=== PATIENT | male | born 1930 | race Caucasian/White ===

== ENCOUNTER 2017-12-26 14:17 | Inpatient (IN) | payer OTHER, MEDICARE ==
--- NOTE | 2017-12-26 14:36 | PDOC ---
Rapid Medical Evaluation Time Seen by Provider: 12/26/17 14:32 Medical Evaluation: Allergies Allergy/AdvReac Type Severity Reaction Status Date / Time No Known Allergies Allergy Verified 12/26/17 14:28 Vital Signs Temp Pulse Resp BP Pulse Ox 97.8 F 95 H 18 115/95 96 12/26/17 14:28 12/26/17 14:28 12/26/17 14:28 12/26/17 14:28 12/26/17 14:28 12/26/17 14:34 I have performed a brief in-person evaluation of this patient. The patient presents with a chief complaint of altered mental status this am. As per son, father appeared altered over the past 2 days with hallucinations. He is presently being treated for a urinary tract infection, taking antibiotics. Patient reports no new pain or discomfort Pertinent physical exam findings NAD lungs clear bilaterally heart s1s2 abd: non tender, no suprapubic tenderness neuro: grossly intact I have ordered the following: labs ordered The patient will proceed to the ED for further evaluation. Discharge Disposition - Referrals Referrals: Melvin Terrazas MD [Primary Care Provider] - - Patient Instructions - Post Discharge Activity
[2017-12-26 15:25] LABS: BASO % 0.5 % (0-2.0); EOS % 0.8 % (0-4.5); HEMATOCRIT 30.6 % (35.4-49); HEMOGLOBIN 10.3 GM/dL (11.7-16.9); LYMPH % 14.1 % (8-40); MCH 34.1 pg (25.7-33.7); MCHC 33.5 g/dl (32.0-35.9); MEAN CELL VOLUME 101.9 fl (80-96); MEAN PLT VOLUME 9.7 fl (7.5-11.1); MONO % 6.3 % (3.8-10.2); NEUT % 78.3 % (42.8-82.8); PLATELET COUNT 91 K/MM3 (134-434); RDW 13.5 % (11.9-15.9); WHITE BLOOD COUNT 3.9 K/mm3 (4.0-10.0)
--- NOTE | 2017-12-26 15:25 | PDOC ---
History of Present Illness - General Chief Complaint: Altered Mental Status Stated Complaint: ALTERED MENTAL STATUS (PCP SENT) Time Seen by Provider: 12/26/17 14:32 - History of Present Illness Initial Comments: 12/26/17 15:58 Mr. Randall is an 87 yo male w/ pmh of DM, HTN, HLD, umbilical hernia, chronic joint pain, GERD, gastritis, hypothyroidism, and anemia who presents on advice from PCP after 10 days of hallucinations at night and new onset difficulty holding his urine. Per sons who are accompanying him he has never had similar problems before but has been experiencing visual hallucinations every night seeing people who aren't there. Mr. Randall cannot recall any new medications and sons report he will sometimes take extra or none of his medications. The patient denies chest pain, shortness of breath, headache and dizziness. Denies fever, chills, nausea, vomit, diarrhea and constipation. Denies dysuria and hematuria. Allergies: NKDA Past History - Past Medical History Allergies/Adverse Reactions: Allergies Allergy/AdvReac Type Severity Reaction Status Date / Time No Known Allergies Allergy Verified 12/26/17 14:28 Home Medications: Ambulatory Orders Atorvastatin Ca [Lipitor] 10 mg PO HS 02/11/14 Docusate Sodium [Colace -] 100 mg PO BID PRN 02/11/14 Finasteride [Proscar] 5 mg PO DAILY 02/11/14 Levothyroxine [Synthroid -] 75 mcg PO DAILY 02/11/14 Polyethylene Glycol 3350 [Gavilax] 17 gm PO DAILY 06/10/14 Zolpidem Tartrate [Ambien] 10 mg PO HS 09/15/14 Calcium Carbonate [Gaviscon] 200 mg PO QID 12/19/15 Escitalopram Oxalate [Lexapro -] 10 mg PO DAILY 12/19/15 Folic Acid 1 mg PO DAILY 12/19/15 Furosemide [Lasix -] 20 mg PO DAILY 12/19/15 Glipizide [Glucotrol Xl] 5 mg PO DAILY 12/19/15 Lactose-Reduced Food [Boost] 237 ml PO DAILY 12/19/15 Lidocaine 5% Patch [Lidoderm -] 3 patch TP Q72H 12/19/15 Oxycodone HCl 20 mg PO Q4H 12/19/15 Quetiapine Fumarate [Seroquel -] 75 mg PO HS 12/19/15 clonazePAM [KlonoPIN] 0.5 mg PO TID PRN 12/19/15 FENTANYL 75mcg PATCH [DURAGESIC 75mcg PATCH -] 1 each TD Q72H 07/02/16 Nitrofurantoin Monohyd/M-Cryst [Macrobid -] 100 mg PO BID #14 capsule 07/06/16 Anemia: Yes (HX LOW PLATELETS) Asthma: No Cancer: No Cardiac Disorders: Yes (HX "LEAKY VALVE") CVA: No COPD: No CHF: No Dementia: No Diabetes: Yes (NIDDM) GI Disorders: Yes (HX ULCERS,UMBILICAL HERNIA) Disorders: Yes (HX BPH) HTN: Yes Hypercholesterolemia: Yes Liver Disease: No Psychiatric Problems: Yes (DEPRESSION/ ANXIETY) Seizures: No Thyroid Disease: Yes - Surgical History Abdominal Surgery: No Appendectomy: No Cardiac Surgery: No Cholecystectomy: No Lung Surgery: No Neurologic Surgery: No Orthopedic Surgery: Yes (B/L KNEE SX,LEFT THR,B/L CTR) - Immunization History Immunization Up to Date: Yes - Suicide/Smoking/Psychosocial Hx Smoking Status: No Smoking History: Former smoker Have you smoked in the past 12 months: No Number of Cigarettes Smoked Daily: 0 If you are a former smoker, when did you quit?: Over 50 years ago Information on smoking cessation initiated: No Hx Alcohol Use: No Drug/Substance Use Hx: No Substance Use Type: None Hx Substance Use Treatment: No Review of Systems - Review of Systems Comments:: 12/26/17 16:07 GENERAL/CONSTITUTIONAL: +Generalized increasing weakness. No fever or chills. HEAD, EYES, EARS, NOSE AND THROAT: No change in vision. No ear pain or discharge. No sore throat. CARDIOVASCULAR: No chest pain or shortness of breath RESPIRATORY: No cough, wheezing, or hemoptysis. GASTROINTESTINAL: No nausea, vomiting, diarrhea or constipation. GENITOURINARY: +Urinary frequency and incontinence MUSCULOSKELETAL: +Chronic joint pain (unchanged) SKIN: No rash NEUROLOGIC: No headache, vertigo or loss of consciousness ENDOCRINE: No increased thirst. No abnormal weight change HEMATOLOGIC/LYMPHATIC: No anemia, easy bleeding, or history of blood clots. ALLERGIC/IMMUNOLOGIC: No hives or skin allergy. *Physical Exam - Vital Signs Last Vital Signs Temp Pulse Resp BP Pulse Ox 97.8 F 95 H 18 115/95 96 12/26/17 14:28 12/26/17 14:28 12/26/17 14:28 12/26/17 14:28 12/26/17 14:28 - Physical Exam Comments: 12/26/17 16:08 GENERAL: Awake, alert, and fully oriented, in no acute distress HEAD: No signs of trauma, normocephalic, atraumatic EYES: PERRLA, EOMI, sclera anicteric, conjunctiva clear ENT: Auricles normal inspection, hearing grossly normal, nares patent, oropharynx clear without exudates. Moist mucosa NECK: Normal ROM, supple, no lymphadenopathy, JVD, or masses LUNGS: +Diffuse wheezes appreciated. No distress, speaks full sentences, clear to auscultation bilaterally HEART: Regular rate and rhythm, normal S1 and S2, no murmurs, rubs or gallops, peripheral pulses normal and equal bilaterally. ABDOMEN: Soft, nontender, normoactive bowel sounds. No guarding, no rebound. No masses EXTREMITIES: +Lower extremities show significant muscle loss. Normal inspection , Normal range of motion, no edema. No clubbing or cyanosis. NEUROLOGICAL: Cranial nerves II through XII grossly intact. Normal speech, no focal sensorimotor deficits SKIN: Warm, Dry, normal turgor, no rashes or lesions noted. ED Treatment Course - LABORATORY CBC & Chemistry Diagram: 12/26/17 15:00 12/26/17 15:00 Medical Decision Making - Medical Decision Making 12/26/17 19:06 Mr. Randall is an 87 yo male w/ pmh as described who presents for evaluation of new onset weakness, failure to thrive and new onset hallucinations. CBC/CMP/UA/ Urine Culture/Head CT/CXR/EKG sent for evaluation. Labs grossly unconcerning as below. TSH elevated consistent with patient's known hypothyroid status. Inpatient team paged for admission given patient's concerning new ams and weakness. 12/26/17 19:15 Patient admitted to inpatient team for further analysis. Laboratory Results - last 24 hr 12/26/17 12/26/17 12/26/17 14:58 15:00 15:00 WBC 3.9 L RBC 3.00 L Hgb 10.3 L Hct 30.6 L MCV 101.9 H MCH 34.1 H MCHC 33.5 RDW 13.5 Plt Count 91 L MPV 9.7 Neutrophils % 78.3 Lymphocytes % 14.1 Monocytes % 6.3 Eosinophils % 0.8 Basophils % 0.5 PT with INR 13.20 H INR 1.17 H PTT (Actin FS) 27.3 Sodium Potassium Chloride Carbon Dioxide Anion Gap BUN Creatinine Creat Clearance w eGFR Random Glucose Calcium Total Bilirubin AST ALT Alkaline Phosphatase Total Protein Albumin TSH 5.16 H Urine Color Urine Appearance Urine pH Ur Specific [place] Urine Protein Urine Glucose (UA) Urine Ketones Urine Blood Urine Nitrite Urine Bilirubin Urine Urobilinogen Ur Leukocyte Esterase Urine WBC (Auto) Urine RBC (Auto) Ur Epithelial Cells Urine Bacteria 12/26/17 12/26/17 15:00 16:14 WBC RBC Hgb Hct MCV MCH MCHC RDW Plt Count MPV Neutrophils % Lymphocytes % Monocytes % Eosinophils % Basophils % PT with INR INR PTT (Actin FS) Sodium 139 Potassium 4.4 Chloride 102 Carbon Dioxide 27 Anion Gap 10 BUN 20 H D Creatinine 1.0 Creat Clearance w eGFR > 60 Random Glucose 120 H D Calcium 8.4 L Total Bilirubin 0.3 D AST 22 ALT 32 Alkaline Phosphatase 138 H Total Protein 6.3 L Albumin 2.8 L TSH Urine Color Ltyellow Urine Appearance Clear Urine pH 6.0 D Ur Specific [place] 1.009 Urine Protein Negative Urine Glucose (UA) Negative Urine Ketones Negative Urine Blood 1+ H Urine Nitrite Negative Urine Bilirubin Negative Urine Urobilinogen Negative Ur Leukocyte Esterase Negative Urine WBC (Auto) 1 Urine RBC (Auto) 3 Ur Epithelial Cells Rare Urine Bacteria Rare 0 *DC/Admit/Observation/Transfer Diagnosis at time of Disposition: Hallucinations Leg weakness Qualifiers: Laterality: bilateral Qualified Code(s): R29.898 - Other symptoms and signs involving the musculoskeletal system Failure to thrive Qualifiers: Failure to thrive age range: in adult Qualified Code(s): R62.7 - Adult failure to thrive - Discharge Dispostion Admit: Yes - Referrals Referrals: Melvin Terrazas MD [Primary Care Provider] - - Patient Instructions - Post Discharge Activity
[2017-12-26 15:36] LABS: ALBUMIN 2.8 g/dl (3.4-5.0); ANION GAP 10 (8-16); BILIRUBIN,TOTAL 0.3 mg/dL (0.2-1.0); BLOOD UREA NITROGEN 20 mg/dL (7-18); CALCIUM 8.4 mg/dL (8.5-10.1); CHLORIDE 102 mmol/L (98-107); CO2 27 mmol/L (21-32); GLUCOSE,RANDOM 120 mg/dL (74-106); POTASSIUM 4.4 mmol/L (3.5-5.1); SGOT/AST 22 U/L (15-37); SGPT/ALT 32 U/L (12-78); SODIUM 139 mmol/L (136-145); TOT PROT 6.3 g/dl (6.4-8.2)
[2017-12-26 15:37] LABS: ALK PHOS 138 U/L (45-117)
[2017-12-26 15:40] LABS: INR 1.17 (0.82-1.09); PROTHROMBIN TIME (PATIENT) 13.2 SEC (9.98-11.88)
[2017-12-26 15:43] LABS: ACTIVATED PTT 27.3 SECONDS (26.9-34.4)
--- NOTE | 2017-12-26 16:12 | PDOC ---
Attending Attestation - Resident Resident Name: Mustapha Smith - ED Attending Attestation I have performed the following: I have examined & evaluated the patient, The case was reviewed & discussed with the resident, I agree w/resident's findings & plan, Exceptions are as noted - HPI HPI: 12/26/17 16:08 87y M dm, htn, hl, chronic pain, gerd, hypothyroidism sent tot he ED from dr. Terrazas for evaluation of AMS. Per family members, pt has been having hallucinations primarily at night for [facility] 10 days or so, +ua incontinence as well. Pt endorses some generalized weakness. STates it is more difficult for him to get up and ambualte with a walker like he usually does. Pt notes he was started on abx by his PMD, this was approx 5 days ago. Pt denies any headache, dizziness, fever/chills, cp, sob, cough, abd pain, n/v, diarrhe, melena. GENERAL: The patient is awake, alert, a Nontoxic - in no acute distress. HEAD: Normocephalic, atraumatic. EYES: extraocular movements intact, sclera anicteric, conjunctiva clear. ENT: Normal voice, Moist mucous membranes. NECK: Normal range of motion, supple LUNGS: Breath sounds equal, clear to auscultation bilaterally. No wheezes, no rhonchi, no rales. HEART: Regular rate and rhythm, normal S1 and S2 without murmur, rub or gallop. ABDOMEN: Soft, nontender, normoactive bowel sounds. No guarding, no rebound. . No CVA tenderness EXTREMITIES: no edema NEUROLOGICAL: No facial assymetry, Normal speech, thin lower extremities, 3/5 symmetric weakness in the LE. strenth 5/5 in upper extermities, sensation symmetric in upper/lower extermities, no facial assymettry PSYCH: Normal mood, normal affect. SKIN: Warm, Dry, normal turgor, - Physicial Exam PE: 12/26/17 19:36 see above - Medical Decision Making 12/26/17 17:45 ddx - anemia, metabolic derangement, NPH, cva, occult infection will ck ct head, labs, ua, ekg will reassesss pt seems very weak in the LE, may need rehab 12/26/17 19:[address] head shows no signs of hdyrocephalus, no acute changes. but there are some chronic infarcts noted since previous CT will admit pt for further management of AMS/hallucinations and possible PT eval as pt may dali to go to [facility]. Heart Score/ECG Review - ECG Impressions Comment:: 12/26/17 17:46 Twelve-lead EKG was performed and reviewed by me. Accelerated junctional rhythm Rate of 101 occasional PVCs RBBB
[2017-12-26 16:54] LABS: URINE APPEARANCE CLEAR; URINE BILIRUBIN NEGATIVE (NEGATIVE); URINE BLOOD 1+ (NEGATIVE); URINE COLOR LTYELLOW; URINE GLUCOSE (UA) NEGATIVE (NEGATIVE); URINE KETONE NEGATIVE (NEGATIVE); URINE LEUK ESTERASE NEGATIVE (NEGATIVE); URINE NITRITE NEGATIVE (NEGATIVE); URINE PROTEIN NEGATIVE (NEGATIVE); URINE UROBILINOGEN NEGATIVE mg/dL (0.2-1.0)
[2017-12-26 18:16] LABS: EPI CELLS RARE /HPF (FEW); URINE BACTERIA RARE /hpf (NONE SEEN)
--- NOTE | 2017-12-26 19:38 | PN ---
Teaching Attending Note Name of Resident: Jeet Goncalves ATTENDING PHYSICIAN STATEMENT I saw and evaluated the patient. I reviewed the resident's note and discussed the case with the resident. I agree with the resident's findings and plan as documented. SUBJECTIVE: 87 yo M. with pmhx. of HTN, HLD, DM, umbilical hernia, chronic joint pain, GERD , hypothyriodism who presents from PCPs office for evaluation of 10 days of hallucinationsn and weakness. He is seeing people who are not there. States weakness has been porgressivly getting worse, but notes slight improvement after treatment of UTI 5 days ago. Denies any loss of bowel or bladder function. OBJECTIVE: Physical: VS: Vital Signs Period Temp Pulse Resp BP Sys/Scott Pulse Ox Last 24 Hr 97.8 F 95 18 115/95 96 GEN: NAD, Resting in bed, AA0X3 HEENT:NCAT, PERRLA, Throat without erythema or exudates CARD: RRR S1,S2 RESP: CTAB- 2 FENTANYL patches were found on back which patient did NOT know about, states his accidently forgot to take one off. ABD: BSx4, NTD to palpation EXT: - C/C/E, Bilateral LE +1/5 MS, UE +5/5, Sensation intact Rectal- Deferred CBCD WBC 3.9 K/mm3 (4.0-10.0) L 12/26/17 15:00 RBC 3.00 M/mm3 (4.00-5.60) L 12/26/17 15:00 Hgb 10.3 GM/dL (11.7-16.9) L 12/26/17 15:00 Hct 30.6 % (35.4-49) L 12/26/17 15:00 MCV 101.9 fl (80-96) H 12/26/17 15:00 MCHC 33.5 g/dl (32.0-35.9) 12/26/17 15:00 RDW 13.5 % (11.9-15.9) 12/26/17 15:00 Plt Count 91 K/MM3 (134-434) L 12/26/17 15:00 MPV 9.7 fl (7.5-11.1) 12/26/17 15:00 CMP Sodium 139 mmol/L (136-145) 12/26/17 15:00 Potassium 4.4 mmol/L (3.5-5.1) 12/26/17 15:00 Chloride 102 mmol/L (98-107) 12/26/17 15:00 Carbon Dioxide 27 mmol/L (21-32) 12/26/17 15:00 Anion Gap 10 (8-16) 12/26/17 15:00 BUN 20 mg/dL (7-18) H D 12/26/17 15:00 Creatinine 1.0 mg/dL (0.7-1.3) 12/26/17 15:00 Creat Clearance w eGFR > 60 (>60) 12/26/17 15:00 Random Glucose 120 mg/dL (74-106) H D 12/26/17 15:00 Calcium 8.4 mg/dL (8.5-10.1) L 12/26/17 15:00 Total Bilirubin 0.3 mg/dL (0.2-1.0) D 12/26/17 15:00 AST 22 U/L (15-37) 12/26/17 15:00 ALT 32 U/L (12-78) 12/26/17 15:00 Alkaline Phosphatase 138 U/L (45-117) H 12/26/17 15:00 Total Protein 6.3 g/dl (6.4-8.2) L 12/26/17 15:00 Albumin 2.8 g/dl (3.4-5.0) L 12/26/17 15:00 CT HEAD- No acute intercranial hemmorage, mass effect, or hydrocephalus. Ambulatory Orders Atorvastatin Ca [Lipitor] 10 mg PO HS 02/11/14 Docusate Sodium [Colace -] 100 mg PO BID PRN 02/11/14 Finasteride [Proscar] 5 mg PO DAILY 02/11/14 Levothyroxine [Synthroid -] 75 mcg PO DAILY 02/11/14 Polyethylene Glycol 3350 [Gavilax] 17 gm PO DAILY 06/10/14 Zolpidem Tartrate [Ambien] 10 mg PO HS 09/15/14 Calcium Carbonate [Gaviscon] 200 mg PO QID 12/19/15 Escitalopram Oxalate [Lexapro -] 10 mg PO DAILY 12/19/15 Folic Acid 1 mg PO DAILY 12/19/15 Furosemide [Lasix -] 20 mg PO DAILY 12/19/15 Glipizide [Glucotrol Xl] 5 mg PO DAILY 12/19/15 Lactose-Reduced Food [Boost] 237 ml PO DAILY 12/19/15 Lidocaine 5% Patch [Lidoderm -] 3 patch TP Q72H 12/19/15 Oxycodone HCl 20 mg PO Q4H 12/19/15 Quetiapine Fumarate [Seroquel -] 75 mg PO HS 12/19/15 clonazePAM [KlonoPIN] 0.5 mg PO TID PRN 12/19/15 FENTANYL 75mcg PATCH [DURAGESIC 75mcg PATCH -] 1 each TD Q72H 07/02/16 Nitrofurantoin Monohyd/M-Cryst [Macrobid -] 100 mg PO BID #14 capsule 07/06/16 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 with pmhx. of HTN, HLD, DM, umbilical hernia, chronic joint pain, GERD , hypothyriodism who presents from PCPs office for evaluation of 10 days of hallucinations and weakness. 1.) Weakness LE -MRI- Thoracic/ Lumbar if not improving, may be due to medication overuse - PT/OT - Neuro consult - TSH, B12, Folate - CT HEAD- With Chronic Infarcts 2.) CVA Hx - Lipid panel - Lipitor - B12/Folate/TSH - ASA 3.) Hypothyriodism - C/W Synthroid - Chk. Ft4 4.) Dm - FS - RAISS 5.) Hallucinations - D/C Ambien, would avoid Klonapin - Psych. Consult - C/W Seroquel with close monitoring of QtC 6.) Macrocytic Anemia - B12/Folate 7.) Dvt ppx - Heparin 5000 q8
[2017-12-26] MEDS ORDERED: DOCUSATE SODIUM 100 MG CAPSULE (FP) PO PRN (21:42)
[2017-12-26] MEDS ORDERED: oxyCODONE HCL 5 MG TABLET PO ONE (21:45)
[2017-12-26] MEDS ORDERED: OXYCODONE HCL 20 MG PO SCH (21:45)
[2017-12-26] MEDS ORDERED: QUEtiapine FUMARATE 25 MG TABLET (FP) ONE (22:04)
[2017-12-26] MEDS ORDERED: HEPARIN NA (PORCINE) 5,000 UNITS/ML 1ML VIAL ONE (22:04)
[2017-12-26] MEDS ORDERED: oxyCODONE HCL 5 MG TABLET ONE (22:05)
[2017-12-26] MEDS: HEPARIN NA (PORCINE) 5,000 UNITS/ML 1ML VIAL SQ SCH (22:12)
--- NOTE | 2017-12-26 22:20 | HP ---
CHIEF COMPLAINT: weakness PCP: Dr. Melvin Terrazas HISTORY OF PRESENT ILLNESS: The patient is an 87 yo m w/ PMH DM, HTN, BPH, Hypothyroidism, anemia who was sent to the ED by his PCP for a 10 day history of progressive weakness and hallucinations. The patient states that over the past two weeks, he has experienced lethargy, lower extremity weakness and hallucinations. The patient is also complaining of urinary incontinence over the same period of time. He saw he PCP 5 days ago, who prescribed him an antibiotic as an outpatient. After these antibiotics, the patient states that his lethargy and incontinence has improved, but he continues to have LE weakness and nightly visual hallucinations. Patient manages his own medications. Per the patient, he has been taking his medications, but occasionally takes double doses or multiple extra doses of his ambien, kolonopin and seroquel to help him fall asleep. Patient denies auditory hallucinations, suicidal or homicidal ideation, fevers, chills, abdominal pain, nausea or vomiting. The patient's sons are at bedside and confirm the patient's story ER course was notable for: (1) CXR negative (2) UA negative for infection (3) CT head showing only chronic infarcts Recent Travel: none PAST MEDICAL HISTORY: See HPI HLD umbilical hernia chronic joint pain GERD PAST SURGICAL HISTORY: Multiple knee and hip orthopedic surgeries Social History: Smoking: denies Alcohol: denies Drugs: denies Family History: non-contributory Allergies No Known Allergies Allergy (Verified 12/26/17 14:28) HOME MEDICATIONS: Home Medications Medication Instructions Recorded Atorvastatin Ca [Lipitor] 10 mg PO HS 02/11/14 Docusate Sodium [Colace -] 100 mg PO BID PRN 02/11/14 Finasteride [Proscar] 5 mg PO DAILY 02/11/14 Levothyroxine [Synthroid -] 75 mcg PO DAILY 02/11/14 Polyethylene Glycol 3350 [Gavilax] 17 gm PO DAILY 06/10/14 Zolpidem Tartrate [Ambien] 10 mg PO HS 09/15/14 Calcium Carbonate [Gaviscon] 200 mg PO QID 12/19/15 Escitalopram Oxalate [Lexapro -] 10 mg PO DAILY 12/19/15 Folic Acid 1 mg PO DAILY 12/19/15 Furosemide [Lasix -] 20 mg PO DAILY 12/19/15 Glipizide [Glucotrol Xl] 5 mg PO DAILY 12/19/15 Lactose-Reduced Food [Boost] 237 ml PO DAILY 12/19/15 Lidocaine 5% Patch [Lidoderm -] 3 patch TP Q72H 12/19/15 Oxycodone HCl 20 mg PO Q4H 12/19/15 Quetiapine Fumarate [Seroquel -] 75 mg PO HS 12/19/15 clonazePAM [KlonoPIN] 0.5 mg PO TID PRN 12/19/15 FENTANYL 75mcg PATCH [DURAGESIC 1 each TD Q72H 07/02/16 75mcg PATCH -] Nitrofurantoin Monohyd/M-Cryst 100 mg PO BID #14 capsule 07/06/16 [Macrobid -] REVIEW OF SYSTEMS CONSTITUTIONAL: Absent: fever, chills, diaphoresis, malaise, loss of appetite, weight change HEENT: Absent: rhinorrhea, nasal congestion, throat pain, throat swelling, difficulty swallowing, mouth swelling, ear pain, eye pain, visual changes CARDIOVASCULAR: Absent: chest pain, syncope, palpitations, irregular heart rate, lightheadedness , peripheral edema RESPIRATORY: Absent: cough, shortness of breath, dyspnea with exertion, orthopnea, wheezing, stridor, hemoptysis GASTROINTESTINAL: Absent: abdominal pain, abdominal distension, nausea, vomiting, diarrhea, constipation, melena, hematochezia GENITOURINARY: Absent: urgency, hesitancy, hematuria, flank pain, genital pain MUSCULOSKELETAL: Absent: myalgia, neck pain SKIN: Absent: rash, itching, pallor HEMATOLOGIC/IMMUNOLOGIC: Absent: easy bleeding, easy bruising, lymphadenopathy, frequent infections ENDOCRINE: Absent: unexplained weight gain, unexplained weight loss, heat intolerance, cold intolerance NEUROLOGIC: Absent: headache, focal weakness or paresthesias, dizziness, unsteady gait, seizure, mental status changes, bladder or bowel incontinence PSYCHIATRIC: Absent: anxiety, depression, suicidal or homicidal ideation, hallucinations. PHYSICAL EXAMINATION Vital Signs - 24 hr 12/26/17 14:28 Temperature 97.8 F Pulse Rate 95 H Respiratory 18 Rate Blood Pressure 115/95 O2 Sat by Pulse 96 Oximetry (%) GENERAL: Awake, alert, and fully oriented, in no acute distress. HEAD: Normal with no signs of trauma. EYES: Pupils equal, round and reactive to light, extraocular movements intact, sclera anicteric, conjunctiva clear. No lid lag. EARS, NOSE, THROAT: Ears normal, nares patent, oropharynx clear without exudates. Moist mucous membranes. NECK: Normal range of motion, supple without lymphadenopathy, JVD, or masses. LUNGS: Breath sounds equal, clear to auscultation bilaterally. No wheezes, and no crackles. No accessory muscle use. HEART: Regular rate and rhythm, normal S1 and S2 without murmur, rub or gallop. ABDOMEN: Soft, nontender, not distended, normoactive bowel sounds, no guarding, no rebound, no masses. No hepatomegaly or splenomegaly. MUSCULOSKELETAL: upper extremities WNL. Lower extremities with decreased range of motion and tenderness on manipulation. UPPER EXTREMITIES: 2+ pulses, warm, well-perfused. No cyanosis. No clubbing. No peripheral edema. LOWER EXTREMITIES: 2+ pulses, warm, well-perfused. No calf tenderness. No peripheral edema. NEUROLOGICAL: Cranial nerves II-XII intact. Normal speech. 5/5 strength in both upper extremities. 1/5 strength on both lower extremities. Lower extremities are rigid. No cog wheel rigidity on upper extremities. PSYCHIATRIC: Cooperative. Good eye contact. Appropriate mood and affect. SKIN: Warm, dry, normal turgor, no rashes or lesions noted, normal capillary refill. Laboratory Results - last 24 hr 12/26/17 12/26/17 12/26/17 14:58 15:00 15:00 WBC 3.9 L RBC 3.00 L Hgb 10.3 L Hct 30.6 L MCV 101.9 H MCH 34.1 H MCHC 33.5 RDW 13.5 Plt Count 91 L MPV 9.7 Neutrophils % 78.3 Lymphocytes % 14.1 Monocytes % 6.3 Eosinophils % 0.8 Basophils % 0.5 PT with INR 13.20 H INR 1.17 H PTT (Actin FS) 27.3 Sodium Potassium Chloride Carbon Dioxide Anion Gap BUN Creatinine Creat Clearance w eGFR Random Glucose Calcium Total Bilirubin AST ALT Alkaline Phosphatase Total Protein Albumin TSH 5.16 H Urine Color Urine Appearance Urine pH Ur Specific [place] Urine Protein Urine Glucose (UA) Urine Ketones Urine Blood Urine Nitrite Urine Bilirubin Urine Urobilinogen Ur Leukocyte Esterase Urine WBC (Auto) Urine RBC (Auto) Ur Epithelial Cells Urine Bacteria 12/26/17 12/26/17 15:00 16:14 WBC RBC Hgb Hct MCV MCH MCHC RDW Plt Count MPV Neutrophils % Lymphocytes % Monocytes % Eosinophils % Basophils % PT with INR INR PTT (Actin FS) Sodium 139 Potassium 4.4 Chloride 102 Carbon Dioxide 27 Anion Gap 10 BUN 20 H D Creatinine 1.0 Creat Clearance w eGFR > 60 Random Glucose 120 H D Calcium 8.4 L Total Bilirubin 0.3 D AST 22 ALT 32 Alkaline Phosphatase 138 H Total Protein 6.3 L Albumin 2.8 L TSH Urine Color Ltyellow Urine Appearance Clear Urine pH 6.0 D Ur Specific [place] 1.009 Urine Protein Negative Urine Glucose (UA) Negative Urine Ketones Negative Urine Blood 1+ H Urine Nitrite Negative Urine Bilirubin Negative Urine Urobilinogen Negative Ur Leukocyte Esterase Negative Urine WBC (Auto) 1 Urine RBC (Auto) 3 Ur Epithelial Cells Rare Urine Bacteria Rare ASSESSMENT/PLAN: The patient is an 87 yo m being admitted for continued workup of LE weakness and hallucinations. #Delirium likely 2/2 polypharmacy -Hold ambien, kolonopin -resume SSRIs with close supervision -TSH elevated, will obtain free T4 -Psych consult -vitamin b12 and folate -utox #LE weakness likely 2/2 deconditioning -Neuro consult -PT consult -vitamin levels as above -consider MRI in AM #Diabetes -BGM ACHS -ISS #HTN -resume home meds #Anemia -at baseline -monitor H/H #BPH -c/w home meds #Chronic joint pain -resume home pain control regimen #FEN -no fluids -monitor lytes -diabetic diet #Prophy -hep SQ TID #dispo -admit to med surg Visit type - Emergency Visit Emergency Visit: Yes ED Registration Date: 12/26/17 Care time: The patient presented to the Emergency Department on the above date and was hospitalized for further evaluation of their emergent condition. - New Patient This patient is new to me today: Yes Date on this admission: 12/26/17 - Critical Care Critical Care patient: No Hospitalist Screening - Colonoscopy Questionnaire Colonoscopy Questionnaire: Colonoscopy Questionnaire - Patient: 50 - 75 years old and never had a screening colonoscopy: Unknown History of colon or rectal polyps, or CA: Unknown History of IBD, Crohn's disease or UC: Unknown History of abdominal radiation therapy as a child: Unknown - Relative: 1 with colon or rectal CA, or polyps at age 60 or younger: Unknown Colon or rectal CA diagnosed at age 45 or younger: Unknown Multiple relatives with colon or rectal CA: Unknown - Outcome: Screening Result: Negative Screen
[2017-12-27 00:03] VITALS: BMI 25.2
[2017-12-27] MEDS: INSULIN SLIDING SCALE (NOVOLOG) 1 VIAL SQ SCH ×5 (00:13→21:45)
[2017-12-27] MEDS: QUEtiapine FUMARATE 25 MG TABLET (FP) PO SCH ×2 (00:19→21:45)
[2017-12-27] MEDS: ATORVASTATIN CA 10 MG TABLET (FP) PO SCH ×2 (00:19→21:45)
[2017-12-27] MEDS: NYSTATIN POWDER 100,000 UNITS/GM - 15 GM TOPICAL POWDER TP SCH ×2 (01:18→13:55)
[2017-12-27] MEDS: ACETAMINOPHEN 325 MG TABLET (FP) PO PRN (01:46)
[2017-12-27] MEDS: HEPARIN NA (PORCINE) 5,000 UNITS/ML 1ML VIAL SQ SCH ×3 (06:15→21:45)
[2017-12-27] MEDS: LEVOTHYROXINE NA 75 MCG TABLET (FP) PO SCH (06:15)
--- NOTE | 2017-12-27 08:13 | PN ---
Physical Exam: SUBJECTIVE: Patient seen and examined at bedside. "Lately I've been off my rocker." Has not slept in 36 hours. OBJECTIVE: Vital Signs Period Temp Pulse Resp BP Sys/Scott Pulse Ox Last 24 Hr 97.8 F-98.8 F 95-98 18-20 115-134/63-95 95-96 GENERAL: The patient is awake, alert, and fully oriented, in no acute distress. LUNGS: Breath sounds equal, clear to auscultation bilaterally, no wheezes, no crackles, no accessory muscle use. HEART: Regular rate and rhythm, S1, S2 ABDOMEN: Soft, nontender, nondistended, normoactive bowel sounds, no guarding, no rebound EXTREMITIES: 2+ pulses, warm, well-perfused, no edema. NEUROLOGICAL: Cranial nerves II through XII grossly intact. Normal speech, gait not observed. PSYCH: Normal mood, normal affect. Quite articulate. Laboratory Results - last 24 hr 12/26/17 12/26/17 12/26/17 14:58 15:00 15:00 WBC 3.9 L RBC 3.00 L Hgb 10.3 L Hct 30.6 L MCV 101.9 H MCH 34.1 H MCHC 33.5 RDW 13.5 Plt Count 91 L MPV 9.7 Neutrophils % 78.3 Lymphocytes % 14.1 Monocytes % 6.3 Eosinophils % 0.8 Basophils % 0.5 PT with INR 13.20 H INR 1.17 H PTT (Actin FS) 27.3 Sodium Potassium Chloride Carbon Dioxide Anion Gap BUN Creatinine Creat Clearance w eGFR POC Glucometer Random Glucose Calcium Total Bilirubin AST ALT Alkaline Phosphatase Total Protein Albumin TSH 5.16 H Urine Color Urine Appearance Urine pH Ur Specific Swink Urine Protein Urine Glucose (UA) Urine Ketones Urine Blood Urine Nitrite Urine Bilirubin Urine Urobilinogen Ur Leukocyte Esterase Urine WBC (Auto) Urine RBC (Auto) Ur Epithelial Cells Urine Bacteria 12/26/17 12/26/17 12/27/17 15:00 16:14 06:06 WBC RBC Hgb Hct MCV MCH MCHC RDW Plt Count MPV Neutrophils % Lymphocytes % Monocytes % Eosinophils % Basophils % PT with INR INR PTT (Actin FS) Sodium 139 Potassium 4.4 Chloride 102 Carbon Dioxide 27 Anion Gap 10 BUN 20 H D Creatinine 1.0 Creat Clearance w eGFR > 60 POC Glucometer 122 Random Glucose 120 H D Calcium 8.4 L Total Bilirubin 0.3 D AST 22 ALT 32 Alkaline Phosphatase 138 H Total Protein 6.3 L Albumin 2.8 L TSH Urine Color Ltyellow Urine Appearance Clear Urine pH 6.0 D Ur Specific Swink 1.009 Urine Protein Negative Urine Glucose (UA) Negative Urine Ketones Negative Urine Blood 1+ H Urine Nitrite Negative Urine Bilirubin Negative Urine Urobilinogen Negative Ur Leukocyte Esterase Negative Urine WBC (Auto) 1 Urine RBC (Auto) 3 Ur Epithelial Cells Rare Urine Bacteria Rare Current Medications Generic Name Dose Route Start Trade Name Freq PRN Reason Stop Acetaminophen 650 mg 12/26/17 21:46 Tylenol - PO Q6H PRN PAIN Atorvastatin Calcium 10 mg 12/26/17 22:00 Lipitor - PO HS [facility] Clonazepam 0.5 mg 12/27/17 12:58 Klonopin - PO TID PRN anxiety, insomnia Docusate Sodium 100 mg 12/26/17 21:42 Colace - PO BID PRN CONSTIPATION Escitalopram Oxalate 10 mg 12/27/17 10:00 Lexapro - PO DAILY [facility] Fentanyl 1 patch 12/27/17 17:00 Duragesic 75mcg Patch - TD Q72H [facility] Finasteride 5 mg 12/27/17 10:00 Proscar - PO DAILY [facility] Folic Acid 1 mg 12/27/17 10:00 Folic Acid - PO DAILY [facility] Furosemide 20 mg 12/27/17 10:00 Lasix - PO DAILY [facility] Heparin Sodium (Porcine) 5,000 unit 12/26/17 22:00 Heparin - SQ TID [facility] CEFTRIAXONE 1 G/50 ML PREMIX 50 mls @ 100 mls/hr 12/27/17 17:00 Ceftriaxone 1 Gm-D5w Bag IVPB DAILY [facility] Insulin Aspart 1 vial 12/26/17 22:00 Novolog Vial Sliding Scale - SQ ACHS [facility] Protocol Levothyroxine Sodium 75 mcg 12/27/17 07:00 Synthroid - PO DAILY@0700 [facility] Miscellaneous 1 each 12/27/17 16:44 Duragesic Patch Waste TD PRN PRN PAIN Nystatin 1 applic 12/27/17 10:00 Nystop Powder - TP DAILY [facility] Oxycodone HCl 20 mg 12/27/17 16:44 Roxicodone - PO Q6H PRN PAIN LEVEL 6-10 Polyethylene Glycol 17 gm 12/27/17 10:00 Miralax (For Daily Use) - PO DAILY [facility] Quetiapine Fumarate 75 mg 12/26/17 22:00 Seroquel - PO HS [facility] ASSESSMENT/PLAN 87 year-old male with a PMH of HTN, HLD, NIDDM, GERD/gastritis, hypothyroidism, and anemia. Admitted for delirium and hallucinations. Delirium Hallucinations --multifactorial: UTI v. non-compliance with medications (missing doses, combining doses) v. other --will resume Lexapro, Seroquel, clonazepam --hold Ambien LE weakness Chronic joint pain --resume fentanyl patch --neuro consult NIDDM --Novolog sliding scale coverage Hypertension --BP stable --continue lasix, on no other anti-hypertensives Hyperlipidemia --continue Lipitor Hypothyroidism --TSH elevated, free T4 wnl --subclinical hypothyroidism --will continue home dose of levothyroxine, outpatient followup in 6 weeks with PCP Anemia --H/H stable BPH --continue Proscar FEN Fluids: PO intake adequate Electrolytes: replete as indicated Nutrition: diabetic DVT prophylaxis: subq heparin, oob, ambulation Physical therapy Dispo: continues to require inpatient care. Full code. -no fluids -monitor lytes Visit type - Emergency Visit Emergency Visit: Yes ED Registration Date: 12/26/17 Care time: The patient presented to the Emergency Department on the above date and was hospitalized for further evaluation of their emergent condition. - New Patient This patient is new to me today: Yes Date on this admission: 12/28/17 - Critical Care Critical Care patient: No
[2017-12-27 08:58] LABS: BASO % 0.9 % (0-2.0); EOS % 1.5 % (0-4.5); HEMATOCRIT 30.7 % (35.4-49); HEMOGLOBIN 10.2 GM/dL (11.7-16.9); LYMPH % 18.4 % (8-40); MCH 33.9 pg (25.7-33.7); MCHC 33.1 g/dl (32.0-35.9); MEAN CELL VOLUME 102.5 fl (80-96); MEAN PLT VOLUME 9.4 fl (7.5-11.1); MONO % 7.9 % (3.8-10.2); NEUT % 71.3 % (42.8-82.8); PLATELET COUNT 80 K/MM3 (134-434); RBC 2.99 M/mm3 (4.00-5.60); RDW 13.7 % (11.9-15.9); WHITE BLOOD COUNT 3.3 K/mm3 (4.0-10.0)
[2017-12-27 09:08] LABS: INR 1.22 (0.82-1.09); PROTHROMBIN TIME (PATIENT) 13.8 SEC (9.98-11.88)
[2017-12-27 09:14] LABS: COCAINE, UR NEGATIVE ng/ml (CUTOFF=300); METHADONE, UR NEGATIVE ng/ml (CUTOFF=300); OPIATES, URI NEGATIVE ng/ml (CUTOFF=300); PHENCYCLIDINE,URINE NEGATIVE ng/ml (CUTOFF=25); URINE AMPHETAMINES NEGATIVE ng/ml (CUTOFF=500); URINE BARBITURATES POSITIVE ng/ml (CUTOFF=200); URINE BENZODIAZEPINES NEGATIVE ng/ml (CUTOFF=200)
[2017-12-27 09:20] LABS: ALBUMIN 2.9 g/dl (3.4-5.0); ANION GAP 9 (8-16); BLOOD UREA NITROGEN 20 mg/dL (7-18); CALCIUM 8.6 mg/dL (8.5-10.1); CHLORIDE 104 mmol/L (98-107); CO2 28 mmol/L (21-32); GLUCOSE,RANDOM 116 mg/dL (74-106); MAGNESIUM 2.6 mg/dL (1.8-2.4); PHOSPHOROUS 2.9 mg/dL (2.5-4.9); SGOT/AST 23 U/L (15-37); SGPT/ALT 30 U/L (12-78); SODIUM 141 mmol/L (136-145)
[2017-12-27 09:21] LABS: ALK PHOS 129 U/L (45-117); BILIRUBIN,TOTAL 0.5 mg/dL (0.2-1.0); TOT PROT 6.2 g/dl (6.4-8.2)
[2017-12-27] MEDS: FUROSEMIDE 20 MG TABLET (FP) PO SCH (09:36)
[2017-12-27] MEDS: FOLIC ACID 1 MG TABLET (FP) PO SCH (09:36)
[2017-12-27] MEDS: FINASTERIDE 5 MG TABLET (FP) PO SCH (09:36)
[2017-12-27] MEDS: POLYETHYLENE GLYCOL 3350 119 GM BTL PO SCH (09:37)
[2017-12-27] MEDS: ESCITALOPRAM OXALATE 10 MG TABLET (FP) PO SCH (09:37)
[2017-12-27] MEDS ORDERED: ASPIRIN COATED 81 MG TABLET.EC PO SCH (10:00)
[2017-12-27] MEDS: ASPIRIN 325 MG ENTERIC COATED TABLET (FP) PO SCH (11:44)
[2017-12-27] MEDS ORDERED: clonazePAM 0.5 MG TABLET PO STA (12:58)
--- NOTE | 2017-12-27 14:22 | EKG ---
Test Reason : Blood Pressure : / mmHG Vent. Rate : 101 BPM Atrial Rate : 104 BPM P-R Int : 000 ms QRS Dur : 110 ms QT Int : 376 ms P-R-T Axes : 000 086 026 degrees QTc Int : 487 ms POOR DATA QUALITY, INTERPRETATION MAY BE ADVERSELY AFFECTED Cannot determine underlying rhythm due to poor baseline ecg RIGHT BUNDLE BRANCH BLOCK ABNORMAL ECG Confirmed by MD Esdras, Tae ([id number]) on 12/27/2017 2:22:30 PM Referred By: Confirmed By:Tae Dewitt MD
[2017-12-27] MEDS ORDERED: fentaNYL 75mcg/hr PATCH.TD72 TD SCH (17:00)
[2017-12-27] MEDS: CEFTRIAXONE 1 G/50 ML PREMIX 50 ML IVPB SCH (17:08)
[2017-12-27] MEDS: FENTANYL PATCH WASTE TD PRN (17:13)
--- NOTE | 2017-12-27 19:02 | CON.PSY ---
Psychiatry Consult Chief Complaint: 87 year old male, known to me forvca long vtime> history bof vMajor Depressive Disorder, anxiety , insom,nini and cmultiple chronic medical conditions. Patients meds reviewed. hade hallucibations on admission but feels ok now. Symptoms: reports: Depressed Mood, Hallucinations - Previous Psychiatric Treatment Outpatient: None Inpatient: None - Previous Substance Abuse Treatment Outpatient: None Inpatient: None - Reason for Previous Treatment Reason for Previous Treatment: Major Depression, Anxiety or Panic Disorder - Current Medications Current Medications: Active Medications Acetaminophen (Tylenol -) 650 mg PO Q6H PRN PRN Reason: PAIN Last Admin: 12/27/17 01:46 Dose: 650 mg Aspirin (Ecotrin -) 325 mg PO DAILY [facility] Last Admin: 12/27/17 11:44 Dose: 325 mg Atorvastatin Calcium (Lipitor -) 10 mg PO HS [facility] Last Admin: 12/27/17 00:19 Dose: 10 mg Clonazepam (Klonopin -) 0.5 mg PO TID PRN PRN Reason: anxiety, insomnia Docusate Sodium (Colace -) 100 mg PO BID PRN PRN Reason: CONSTIPATION Escitalopram Oxalate (Lexapro -) 10 mg PO DAILY [facility] Last Admin: 12/27/17 09:37 Dose: 10 mg Fentanyl (Duragesic 75mcg Patch -) 1 patch TD Q72H [facility] Last Admin: 12/27/17 17:05 Dose: 1 patch Finasteride (Proscar -) 5 mg PO DAILY [facility] Last Admin: 12/27/17 09:36 Dose: 5 mg Folic Acid (Folic Acid -) 1 mg PO DAILY [facility] Last Admin: 12/27/17 09:36 Dose: 1 mg Furosemide (Lasix -) 20 mg PO DAILY [facility] Last Admin: 12/27/17 09:36 Dose: 20 mg Heparin Sodium (Porcine) (Heparin -) 5,000 unit SQ TID [facility] Last Admin: 12/27/17 13:53 Dose: 5,000 unit CEFTRIAXONE 1 G/50 ML PREMIX (Ceftriaxone 1 Gm-D5w Bag) 50 mls @ 100 mls/hr IVPB DAILY [facility] Last Admin: 12/27/17 17:08 Dose: 100 mls/hr Insulin Aspart (Novolog Vial Sliding Scale -) 1 vial SQ ACHS [facility] PRN Reason: Protocol Last Admin: 12/27/17 16:47 Dose: Not Given Levothyroxine Sodium (Synthroid -) 75 mcg PO DAILY@0700 [facility] Last Admin: 12/27/17 06:15 Dose: 75 mcg Miscellaneous (Duragesic Patch Waste) 1 each TD PRN PRN PRN Reason: PAIN Last Admin: 12/27/17 17:13 Dose: 1 each Nystatin (Nystop Powder -) 1 applic TP DAILY [facility] Last Admin: 12/27/17 13:55 Dose: 1 applic Oxycodone HCl (Roxicodone -) 20 mg PO Q6H PRN PRN Reason: PAIN LEVEL 6-10 Polyethylene Glycol (Miralax (For Daily Use) -) 17 gm PO DAILY [facility] Last Admin: 12/27/17 09:37 Dose: 17 gm Quetiapine Fumarate (Seroquel -) 75 mg PO HS [facility] Last Admin: 12/27/17 00:19 Dose: 75 mg - Allergies Allergies: Allergies Allergy/AdvReac Type Severity Reaction Status Date / Time No Known Allergies Allergy Verified 12/26/17 14:28 - Current Living Status Usual Living Arrangement: With Significant Other - Current Mental Status Evaluation Appearance: Well Groomed Attitude: Cooperative - Affect Affect: Full Range Appropriateness: Appropriate to Content - Mood Mood: Euthymic - Speech/Language Expressive: Coherent - Psychomotor Activity Psychomotor Activity: Normal - Thought Process Thought Process: Intact - Thought Content Hallucinations: Absent Delusions: Absent - Self Perception Self Perception: No Impairment - Cognition Attention: Alert Orientation: Time Memory, Immediate Recall: Intact Memory, Short Term: 3/3 Memory, Remote with Promptin/3 - Concentration Serial Sevens Intact: No Simple Calculations Intact: No - Abstraction Proverb Interpretation: Intact Judgement: Intact - Impulse Control Impulse Control: Good Control - Suicidal Ideation Suicidal Ideation: No - Homicidal Ideation Homicidal Ideation: No Assessment/Plan 1) hallucinations may be from the combination of pain meds and Ambien. 2) Hallucinations gave resolved at this time. 3) Continue with currant psych meds.
--- NOTE | 2017-12-27 21:09 | PN ---
Physical Exam: SUBJECTIVE: Patient seen and examined OBJECTIVE: Vital Signs Period Temp Pulse Resp BP Sys/Scott Pulse Ox Last 24 Hr 98.2 F-98.8 F 96-102 18-20 119-138/63-76 95-97 GENERAL: The patient is awake, alert, and fully oriented, in no acute distress. HEAD: Normal with no signs of trauma. EYES: PERRL, extraocular movements intact, sclera anicteric, conjunctiva clear. No ptosis. ENT: Ears normal, nares patent, oropharynx clear without exudates, moist mucous membranes. NECK: Trachea midline, full range of motion, supple. LUNGS: Breath sounds equal, clear to auscultation bilaterally, no wheezes, no crackles, no accessory muscle use. HEART: Regular rate and rhythm, S1, S2 without murmur, rub or gallop. ABDOMEN: Soft, nontender, nondistended, normoactive bowel sounds, no guarding, no rebound, no hepatosplenomegaly, no masses. EXTREMITIES: 2+ pulses, warm, well-perfused, no edema. NEUROLOGICAL: Cranial nerves II through XII grossly intact. Normal speech, gait not observed. PSYCH: Normal mood, normal affect. SKIN: Warm, dry, normal turgor, no rashes or lesions noted Laboratory Results - last 24 hr 12/27/17 12/27/17 12/27/17 06:06 06:10 08:00 WBC 3.3 L RBC 2.99 L Hgb 10.2 L Hct 30.7 L MCV 102.5 H MCH 33.9 H MCHC 33.1 RDW 13.7 Plt Count 80 L MPV 9.4 Neutrophils % 71.3 Lymphocytes % 18.4 D Monocytes % 7.9 Eosinophils % 1.5 D Basophils % 0.9 PT with INR INR Sodium Potassium Chloride Carbon Dioxide Anion Gap BUN Creatinine Creat Clearance w eGFR POC Glucometer 122 Random Glucose Calcium Phosphorus Magnesium Total Bilirubin AST ALT Alkaline Phosphatase Total Protein Albumin Vitamin B12 Free T4 Opiates Screen Negative Methadone Screen Negative Barbiturate Screen Positive Phencyclidine Screen Negative Ur Amphetamines Screen Negative MDMA (Ecstasy) Screen Negative Benzodiazepines Screen Negative Cocaine Screen Negative U Marijuana (THC) Screen Negative 12/27/17 12/27/17 12/27/17 08:00 08:00 08:00 WBC RBC Hgb Hct MCV MCH MCHC RDW Plt Count MPV Neutrophils % Lymphocytes % Monocytes % Eosinophils % Basophils % PT with INR 13.80 H INR 1.22 H Sodium 141 Potassium 4.0 Chloride 104 Carbon Dioxide 28 Anion Gap 9 BUN 20 H Creatinine 1.0 Creat Clearance w eGFR > 60 POC Glucometer Random Glucose 116 H Calcium 8.6 Phosphorus 2.9 Magnesium 2.6 H Total Bilirubin 0.5 D AST 23 ALT 30 Alkaline Phosphatase 129 H Total Protein 6.2 L Albumin 2.9 L Vitamin B12 826 Free T4 1.16 Opiates Screen Methadone Screen Barbiturate Screen Phencyclidine Screen Ur Amphetamines Screen MDMA (Ecstasy) Screen Benzodiazepines Screen Cocaine Screen U Marijuana (THC) Screen 12/27/17 12/27/17 11:46 16:45 WBC RBC Hgb Hct MCV MCH MCHC RDW Plt Count MPV Neutrophils % Lymphocytes % Monocytes % Eosinophils % Basophils % PT with INR INR Sodium Potassium Chloride Carbon Dioxide Anion Gap BUN Creatinine Creat Clearance w eGFR POC Glucometer 143 141 Random Glucose Calcium Phosphorus Magnesium Total Bilirubin AST ALT Alkaline Phosphatase Total Protein Albumin Vitamin B12 Free T4 Opiates Screen Methadone Screen Barbiturate Screen Phencyclidine Screen Ur Amphetamines Screen MDMA (Ecstasy) Screen Benzodiazepines Screen Cocaine Screen U Marijuana (THC) Screen Active Medications Generic Name Dose Route Start Last Admin Trade Name Freq PRN Reason Stop Dose Admin Acetaminophen 650 mg 12/26/17 21:46 12/27/17 01:46 Tylenol - PO 650 mg Q6H PRN Administration PAIN Aspirin 325 mg 12/27/17 10:00 12/27/17 11:44 Ecotrin - PO 325 mg DAILY MG Administration Atorvastatin Calcium 10 mg 12/26/17 22:00 12/27/17 00:19 Lipitor - PO 10 mg HS MG Administration Clonazepam 0.5 mg 12/27/17 12:58 Klonopin - PO TID PRN anxiety, insomnia Docusate Sodium 100 mg 12/26/17 21:42 Colace - PO BID PRN CONSTIPATION Escitalopram Oxalate 10 mg 12/27/17 10:00 12/27/17 09:37 Lexapro - PO 10 mg DAILY MG Administration Fentanyl 1 patch 12/27/17 17:00 12/27/17 17:05 Duragesic 75mcg Patch - TD 1 patch Q72H MG Administration Finasteride 5 mg 12/27/17 10:00 12/27/17 09:36 Proscar - PO 5 mg DAILY MG Administration Folic Acid 1 mg 12/27/17 10:00 12/27/17 09:36 Folic Acid - PO 1 mg DAILY MG Administration Furosemide 20 mg 12/27/17 10:00 12/27/17 09:36 Lasix - PO 20 mg DAILY MG Administration Heparin Sodium (Porcine) 5,000 unit 12/26/17 22:00 12/27/17 13:53 Heparin - SQ 5,000 unit TID MG Administration CEFTRIAXONE 1 G/50 ML PREMIX 50 mls @ 100 mls/hr 12/27/17 17:00 12/27/17 17: 08 Ceftriaxone 1 Gm-D5w Bag IVPB 100 mls/hr DAILY MG Administration Insulin Aspart 1 vial 12/26/17 22:00 12/27/17 16:47 Novolog Vial Sliding Scale - SQ Not Given ACHS [facility] Protocol Levothyroxine Sodium 75 mcg 12/27/17 07:00 12/27/17 06:15 Synthroid - PO 75 mcg DAILY@0700 MG Administration Miscellaneous 1 each 12/27/17 16:44 12/27/17 17:13 Duragesic Patch Waste TD 1 each PRN PRN Administration PAIN Nystatin 1 applic 12/27/17 10:00 12/27/17 13:55 Nystop Powder - TP 1 applic DAILY MG Administration Oxycodone HCl 20 mg 12/27/17 16:44 Roxicodone - PO Q6H PRN PAIN LEVEL 6-10 Polyethylene Glycol 17 gm 12/27/17 10:00 12/27/17 09:37 Miralax (For Daily Use) - PO 17 gm DAILY MG Administration Quetiapine Fumarate 75 mg 12/26/17 22:00 12/27/17 00:19 Seroquel - PO 75 mg HS MG Administration ASSESSMENT/PLAN:
[2017-12-27] MEDS: clonazePAM 0.5 MG TABLET PO PRN (21:45)
[2017-12-27] MEDS: oxyCODONE HCL 5 MG TABLET PO PRN (21:51)
[2017-12-28] MEDS: oxyCODONE HCL 5 MG TABLET PO PRN ×2 (04:09→16:26)
[2017-12-28] MEDS: INSULIN SLIDING SCALE (NOVOLOG) 1 VIAL SQ SCH ×4 (06:35→21:45)
[2017-12-28] MEDS: LEVOTHYROXINE NA 75 MCG TABLET (FP) PO SCH (06:38)
[2017-12-28] MEDS: HEPARIN NA (PORCINE) 5,000 UNITS/ML 1ML VIAL SQ SCH ×3 (06:38→21:39)
[2017-12-28] MEDS: clonazePAM 0.5 MG TABLET PO PRN (08:22)
[2017-12-28] MEDS ORDERED: PT OWN MED DRAWER 7, Y5N ONE ×2 (09:53→21:18)
[2017-12-28] MEDS: ESCITALOPRAM OXALATE 10 MG TABLET (FP) PO SCH (10:06)
[2017-12-28] MEDS: POLYETHYLENE GLYCOL 3350 119 GM BTL PO SCH (10:06)
[2017-12-28] MEDS: FINASTERIDE 5 MG TABLET (FP) PO SCH (10:06)
[2017-12-28] MEDS: FOLIC ACID 1 MG TABLET (FP) PO SCH (10:06)
[2017-12-28] MEDS: FUROSEMIDE 20 MG TABLET (FP) PO SCH (10:06)
[2017-12-28] MEDS: CEFTRIAXONE 1 G/50 ML PREMIX 50 ML IVPB SCH (10:06)
[2017-12-28] MEDS: ASPIRIN 325 MG ENTERIC COATED TABLET (FP) PO SCH (10:06)
[2017-12-28] MEDS: NYSTATIN POWDER 100,000 UNITS/GM - 15 GM TOPICAL POWDER TP SCH (10:07)
--- NOTE | 2017-12-28 10:20 | CONSULT ---
Consult - text type - Consultation Consultation Note: NEUROLOGY CONSULTATION is greatly appreciated: This 87 yo RH man lives with his son. PMH sig for HTN, DM, Chol, GERD, Hypothyroidism, OS and anemia. Maintained on Glipizide, atorvastatin, L-Thyroxin, furosamide, proscar, lexapro , quetiapine (75 mg), and zolpidem. 5 years of progressive pains in his legs attributed to "arthritis." Worst at night causing chronic insomnia. Can't get comfortable. Pillows under legs Began as a "painful pulling" behind both achilles tendons at night but have gradually spread up to the knees and thighs. 3 knee arthroscopies (Bakari Garces) had no benefit for pain or walking. Now, pain and stiffness in legs during the day when sitting. On Fentanyl (75 ug q 72 hrs), Oxycodone 20 mg q 6 hrs, and lidoderm patches. Curously admission Tox screen was NEG for narcotics. Also 5 years of progressive gait dysfunction which patient attributes to the pain. 5 years of progressive deterioration in handwriting attributed to arthritis. Patient is aware of jaw tremor x few years. Now admitted after few days of visual hallucinations (seeing people in his room and house at night) associated with recent Rx for UTI (MicroBID). CT of head (reviewed): Mild atrophy and microvascular changes. Labs sig for macrocytic anemia with normal B12 level. EDENILSON: Neck supple. No bruits. no head trauma. Umbilical hernia. Heberdens nodes. NEURO: Awake, alert, cooperative, fluent. Mild OMS. No hallucinations currently CN: Slightly masked. Intermittant, rhythmic, Right jaw tremor. Gag OK Motor: Bradykinetic. + Cogwheeling (R>L). Decreased BALBINA's. Areflexic in legs. Normal strength throughout. Toes downgoing. Coord: No FTN dystaxia Sensory: Normal Gait: Stands with assistance. Flexed, shuffling, festinating. IMP: 1. Parkinson's Disease (PD). 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 SUGGEST: Continue antibiotics for UTI if indicated. Start carbidopa/levadopa 12.5/50 TID x 1 day the 25/100 TID with meals. Begin Pramipexole .25 mg q HS Reduce fentanyl to 50 ug q 72 hrs and reduce oxycodone to 10 mg PO q 6 hrs on PRN basis. Continue Quetiapine 75 q HS for now. Pimavanserin if hallucinations recur. Neuro F/u as out patient. Thank you very much, Melvin Larson MD
--- NOTE | 2017-12-28 10:45 | PN ---
Physical Exam: SUBJECTIVE: Patient seen and examined at bedside. OBJECTIVE: Vital Signs Period Temp Pulse Resp BP Sys/Scott Pulse Ox Last 24 Hr 98.2 F-99.0 F 89-102 20-20 130-146/64-79 97 GENERAL: The patient is awake, alert, and fully oriented, in no acute distress. LUNGS: Breath sounds equal, clear to auscultation bilaterally, no wheezes, no crackles, no accessory muscle use. HEART: Regular rate and rhythm, S1, S2 ABDOMEN: Soft, nontender, nondistended, normoactive bowel sounds, no guarding, no rebound EXTREMITIES: 2+ pulses, warm, well-perfused, no edema. NEUROLOGICAL: Cranial nerves II through XII grossly intact. Normal speech, gait not observed. Current Medications Generic Name Dose Route Start Last Admin Trade Name Freq PRN Reason Stop Dose Admin Acetaminophen 650 mg 12/26/17 21:46 12/27/17 01:46 Tylenol - PO 650 mg Q6H PRN Administration PAIN Aspirin 325 mg 12/27/17 10:00 12/28/17 10:06 Ecotrin - PO 325 mg DAILY MG Administration Atorvastatin Calcium 10 mg 12/26/17 22:00 12/27/17 21:45 Lipitor - PO 10 mg HS MG Administration Carbidopa/Levodopa 0.5 combo 12/28/17 12:00 12/28/17 12:17 Sinemet *Cr* 25/100 - PO 12/29/17 10:00 0.5 combo TIDCM MG Administration Carbidopa/Levodopa 1 combo 12/29/17 12:00 Sinemet *Cr* 25/100 - PO TIDCM MG Clonazepam 0.5 mg 12/27/17 12:58 12/28/17 08:22 Klonopin - PO 0.5 mg TID PRN Administration anxiety, insomnia Docusate Sodium 100 mg 12/26/17 21:42 Colace - PO BID PRN CONSTIPATION Escitalopram Oxalate 10 mg 12/27/17 10:00 12/28/17 10:06 Lexapro - PO 10 mg DAILY MG Administration Fentanyl 1 patch 12/27/17 17:00 12/27/17 17:05 Duragesic 75mcg Patch - TD 1 patch Q72H MG Administration Finasteride 5 mg 12/27/17 10:00 12/28/17 10:06 Proscar - PO 5 mg DAILY MG Administration Folic Acid 1 mg 12/27/17 10:00 12/28/17 10:06 Folic Acid - PO 1 mg DAILY MG Administration Furosemide 20 mg 12/27/17 10:00 12/28/17 10:06 Lasix - PO 20 mg DAILY MG Administration Heparin Sodium (Porcine) 5,000 unit 12/26/17 22:00 12/28/17 14:12 Heparin - SQ 5,000 unit TID MG Administration CEFTRIAXONE 1 G/50 ML PREMIX 50 mls @ 100 mls/hr 12/27/17 17:00 12/28/17 10: 06 Ceftriaxone 1 Gm-D5w Bag IVPB 100 mls/hr DAILY MG Administration Insulin Aspart 1 vial 12/26/17 22:00 12/28/17 12:14 Novolog Vial Sliding Scale - SQ Not Given ACHS [facility] Protocol Levothyroxine Sodium 75 mcg 12/27/17 07:00 12/28/17 06:38 Synthroid - PO 75 mcg DAILY@0700 MG Administration Miscellaneous 1 each 12/27/17 16:44 12/27/17 17:13 Duragesic Patch Waste TD 1 each PRN PRN Administration PAIN Nystatin 1 applic 12/27/17 10:00 12/28/17 10:07 Nystop Powder - TP 1 applic DAILY MG Administration Oxycodone HCl 20 mg 12/27/17 16:44 12/28/17 04:09 Roxicodone - PO 20 mg Q6H PRN Administration PAIN LEVEL 6-10 Polyethylene Glycol 17 gm 12/27/17 10:00 12/28/17 10:06 Miralax (For Daily Use) - PO 17 gm DAILY MG Administration Pramipexole Dihydrochloride 0.25 mg 12/28/17 22:00 Mirapex - PO HS MG Quetiapine Fumarate 75 mg 12/26/17 22:00 12/27/17 21:45 Seroquel - PO 75 mg HS MG Administration ASSESSMENT/PLAN 87 year-old male with a PMH of HTN, HLD, NIDDM, GERD/gastritis, hypothyroidism, anemia. Now diagnosed with Parkinson's disease, Parkinson's-related restless leg syndrome, and Parkinson's related psychosis. Parkinson's Disease --seen and evaluated by Dr. Larson --start carbidopa/levadopa 12.5/50 TID x 1 day, then 25/100 TID with meals. --start Pramipexole .25 mg q HS Delirium and hallucinations --presently stable --multifactorial: possible UTI v. non-compliance with pain meds and Ambien ( missing doses, combining doses) v. Parkinson's disease-related psychosis --continue Lexapro, Seroquel, clonazepam --hold Ambien --Pimavanserin if hallucinations recur Possible UTI --was treated with Cipro x 5 days and then macrobid x 2 days before coming to the hospital --UA & UC negative but collected after 7 days of antibiotics --continue to treat emirically with ceftriaxone (day #2) Chronic joint pain --reduce fentanyl to 50 mcg q72 hrs --reduce oxycodone to 10 mg PO q6h PRN NIDDM --Novolog sliding scale coverage Hypertension --BP stable --continue lasix, on no other anti-hypertensives Hyperlipidemia --continue Lipitor Hypothyroidism --TSH elevated, free T4 wnl --subclinical hypothyroidism --will continue home dose of levothyroxine, outpatient followup in 6 weeks with PCP Anemia --H/H stable BPH --continue Proscar FEN Fluids: PO intake adequate Electrolytes: replete as indicated Nutrition: diabetic DVT prophylaxis: subq heparin, oob, ambulation Physical therapy Dispo: continues to require inpatient care. Full code. Visit type - Emergency Visit Emergency Visit: Yes ED Registration Date: 12/26/17 Care time: The patient presented to the Emergency Department on the above date and was hospitalized for further evaluation of their emergent condition. - New Patient This patient is new to me today: No - Critical Care Critical Care patient: No
[2017-12-28] MEDS: ATORVASTATIN CA 10 MG TABLET (FP) PO SCH (21:39)
[2017-12-28] MEDS: QUEtiapine FUMARATE 25 MG TABLET (FP) PO SCH (21:39)
[2017-12-28] MEDS ORDERED: PRAMIPEXOLE DIHYDROCHLORIDE 0.25 MG TABLET PO SCH (22:00)
[2017-12-29] MEDS: oxyCODONE HCL 5 MG TABLET PO PRN ×2 (05:00→11:41)
[2017-12-29] MEDS: LEVOTHYROXINE NA 75 MCG TABLET (FP) PO SCH (06:40)
[2017-12-29] MEDS: HEPARIN NA (PORCINE) 5,000 UNITS/ML 1ML VIAL SQ SCH ×2 (06:40→14:33)
[2017-12-29] MEDS: INSULIN SLIDING SCALE (NOVOLOG) 1 VIAL SQ SCH ×2 (06:40→11:43)
[2017-12-29 07:45] LABS: BASO % 0.7 % (0-2.0); EOS % 0.6 % (0-4.5); HEMATOCRIT 35.7 % (35.4-49); LYMPH % 12.2 % (8-40); MCH 34.4 pg (25.7-33.7); MCHC 33.8 g/dl (32.0-35.9); MEAN CELL VOLUME 101.9 fl (80-96); MEAN PLT VOLUME 9.5 fl (7.5-11.1); MONO % 8.2 % (3.8-10.2); NEUT % 78.3 % (42.8-82.8); PLATELET COUNT 108 K/MM3 (134-434); RDW 13.7 % (11.9-15.9); WHITE BLOOD COUNT 5.5 K/mm3 (4.0-10.0)
[2017-12-29 08:36] LABS: ALBUMIN 3.2 g/dl (3.4-5.0); ANION GAP 9 (8-16); BLOOD UREA NITROGEN 25 mg/dL (7-18); CALCIUM 8.4 mg/dL (8.5-10.1); CHLORIDE 103 mmol/L (98-107); CO2 26 mmol/L (21-32); CREATININE 0.9 mg/dL (0.7-1.3); GLUCOSE,RANDOM 143 mg/dL (74-106); MAGNESIUM 2.3 mg/dL (1.8-2.4); POTASSIUM 4.1 mmol/L (3.5-5.1); SGOT/AST 31 U/L (15-37); SGPT/ALT 36 U/L (12-78); SODIUM 138 mmol/L (136-145); TOT PROT 6.6 g/dl (6.4-8.2)
[2017-12-29 08:38] LABS: ALK PHOS 159 U/L (45-117); BILIRUBIN,TOTAL 0.5 mg/dL (0.2-1.0)
[2017-12-29] MEDS ORDERED: PT OWN MED DRAWER 7, Y5N ONE (09:13)
[2017-12-29] MEDS: FUROSEMIDE 20 MG TABLET (FP) PO SCH (09:27)
[2017-12-29] MEDS: FOLIC ACID 1 MG TABLET (FP) PO SCH (09:27)
[2017-12-29] MEDS: ESCITALOPRAM OXALATE 10 MG TABLET (FP) PO SCH (09:27)
[2017-12-29] MEDS: ACETAMINOPHEN 325 MG TABLET (FP) PO PRN (09:28)
[2017-12-29] MEDS: FINASTERIDE 5 MG TABLET (FP) PO SCH (09:29)
[2017-12-29] MEDS: ASPIRIN 325 MG ENTERIC COATED TABLET (FP) PO SCH (09:29)
[2017-12-29] MEDS: POLYETHYLENE GLYCOL 3350 119 GM BTL PO SCH (09:31)
[2017-12-29] MEDS: CEFTRIAXONE 1 G/50 ML PREMIX 50 ML IVPB SCH (09:31)
[2017-12-29] MEDS ORDERED: TAMSULOSIN HCL 0.4 MG CAP.ER.24H (FP) PO SCH (10:00)
[2017-12-29] MEDS: NYSTATIN POWDER 100,000 UNITS/GM - 15 GM TOPICAL POWDER TP SCH (10:24)
[2017-12-29] MEDS ORDERED: INSULIN (NOVOLOG) ASPART 100 UNITS/ML 10ML VIAL ONE (11:38)
[2017-12-29] MEDS ORDERED: FENTANYL PATCH WASTE TD PRN (12:15)
[2017-12-29] MEDS ORDERED: fentaNYL 50mcg/hr PATCH.TD72 TD SCH (12:15)
--- NOTE | 2017-12-29 12:33 | DS ---
Physical Examination Vital Signs: Vital Signs Temperature 97.6 F 12/29/17 08:00 Pulse Rate 97 H 12/29/17 08:00 Respiratory Rate 18 12/29/17 08:00 Blood Pressure 113/70 12/29/17 08:00 O2 Sat by Pulse Oximetry (%) 97 12/29/17 09:00 Labs: CBC, BMP 12/29/17 06:30 12/29/17 06:30 Discharge Summary Reason For Visit: FAILURE TO THRIVE/HALLUCINATIONS/WEAKNESS Current Active Problems Failure to thrive (Acute) Hallucinations (Acute) Leg weakness (Acute) Condition: Improved - Instructions Diet, Activity, Other Instructions: Please return to the ED with new, persistent, or worsening symptoms. Please follow-up with providers as indicated. Acute urinary retention: - Continue Proscar and Flomax. Have your howell catheter removed on 12/31/17 for a due to void trial Referrals: Fox Gallagher MD [Staff Physician] - 1 Week Melvin Larson MD [Staff Physician] - (Please follow-up with Dr. Larson ( neurology) within 2-3 days for further management of your Parkinson's Disease) Melvin Terrazas MD [Primary Care Provider] - (Please follow-up with your primary care provider within 1 week. ) Disposition: INTERMEDIATE FACILITY - Home Medications Comprehensive Discharge Medication List: Ambulatory Orders Atorvastatin Ca [Lipitor] 10 mg PO HS 02/11/14 Docusate Sodium [Colace -] 100 mg PO BID PRN 02/11/14 Finasteride [Proscar] 5 mg PO DAILY 02/11/14 Levothyroxine [Synthroid -] 75 mcg PO DAILY 02/11/14 Polyethylene Glycol 3350 [Gavilax] 17 gm PO DAILY 06/10/14 Calcium Carbonate [Gaviscon] 200 mg PO QID 12/19/15 Escitalopram Oxalate [Lexapro -] 10 mg PO DAILY 12/19/15 Folic Acid 1 mg PO DAILY 12/19/15 Furosemide [Lasix -] 20 mg PO DAILY 12/19/15 Glipizide [Glucotrol Xl] 5 mg PO DAILY 12/19/15 Lactose-Reduced Food [Boost] 237 ml PO DAILY 12/19/15 Quetiapine Fumarate [Seroquel -] 75 mg PO HS 12/19/15 clonazePAM [KlonoPIN] 0.5 mg PO TID PRN 12/19/15 Acetaminophen [Tylenol .Regular Strength -] 650 mg PO Q6H PRN tablet 12/29/17 Aspirin Coated [Ecotrin -] 325 mg PO DAILY tablet. 12/29/17 Carbidopa/Levodopa *Cr* 25/100 [Sinemet *Cr* 25/100 -] 1 combo PO TIDCM tablet.er 12/29/17 FENTANYL 50mcg PATCH [DURAGESIC 50 mcg PATCH -] 1 patch TD Q72H patch.td72 MDD 50mcg 12/29/17 Fentanyl Patch Waste [Duragesic Patch Waste] 1 each TD PRN PRN each 12/29/17 Tamsulosin HCl [Flomax -] 0.4 mg PO BID@0830,2200 cap.er.24h 12/29/17 oxyCODONE HCL [Roxicodone -] 10 mg PO Q6H PRN tablet MDD 40mg 12/29/17
[2017-12-29] MEDS: FENTANYL PATCH WASTE TD PRN (13:12)
[2017-12-29 14:50] VITALS: BP 147/75; PULSE 101; TEMP 98.5
== END 2017-12-29 16:27 | DRG 57 ==
LOC: JER 14:17 → JERBED 19:16 → J6S 12-27 00:10
PROVIDERS: ADMIT Internal Medicine; ATTEND Registered Nurse
DX: G20 Parkinson's disease (principal); R44.2 Other hallucinations; N39.0 Urinary tract infection, site not specified; E11.9 Type 2 diabetes mellitus without complications; I10 Essential (primary) hypertension; E78.5 Hyperlipidemia, unspecified; K42.9 Umbilical hernia without obstruction or gangrene; K21.9 Gastro-esophageal reflux disease without esophagitis; E03.9 Hypothyroidism, unspecified; K29.60 Other gastritis without bleeding; M25.50 Pain in unspecified joint; D64.9 Anemia, unspecified; N40.0 Benign prostatic hyperplasia without lower urinary tract symptoms; F41.8 Other specified anxiety disorders; R41.0 Disorientation, unspecified; I45.19 Other right bundle-branch block; G25.81 Restless legs syndrome; L89.151 Pressure ulcer of sacral region, stage 1; T50.905A Adverse effect of unspecified drugs, medicaments and biological substances, initial encounter; R62.7 Adult failure to thrive; R33.9 Retention of urine, unspecified; Z91.14 Patient's other noncompliance with medication regimen; Z87.891 Personal history of nicotine dependence
CPT/HCPCS: 36415; 70450-TC; 71045-TC-FY; 80053; 80307; 81003; 81015; 82607; 82747; 82962; 83735; 84100; 84439; 84443; 85014; 85025; 85610; 85730; 87081; 87086; 93005; 93010; 97116-GP; 97161-GP; 99283-25; J1644